=== PATIENT | female | born 1985 | race American Indian/Alaskan Native ===

== ENCOUNTER 2017-01-05 00:56 | Emergency (ER) | payer SELFPAY ==
[2017-01-05] MEDS ORDERED: PEPCID IV ONE (01:45)
--- NOTE | 2017-01-05 01:48 | Emergency Department Report ---
HPI - General Chief Complaint: Allergic Reaction Time Seen by Provider: 01/05/17 01:39 - HPI HPI: This is a 31-year-old Afro-[place] female presents to the emergency department by EMS with complaint of a possible allergic reaction. Patient says that she was eating some little [employer] pepperoni pizza and some [employer] lemonade, about 1 hour ago, when she all of a sudden started developing some hives and having some shortness of breath. EMS gave her Benadryl, Solu-Medrol, albuterol and outpatient says she feels like she is back at baseline. She does not have any known medication allergies. She does have an allergy to bananas answered types of nuts. She has a past medical history of asthma. She does not have a primary care doctor. She is a tobacco smoker. ED Past Medical Hx - Past Medical History Previous Medical History?: Yes Hx Hypertension: No Hx Diabetes: No Hx Deep Vein Thrombosis: No Hx Renal Disease: No Hx Sickle Cell Disease: No Hx Seizures: No Hx Asthma: Yes (last attack 3 years ago) Hx HIV: No - Surgical History Past Surgical History?: Yes Additional Surgical History: C SECTION X3 - Social History Smoking Status: Current Some Day Smoker Substance Use Type: None - Medications Home Medications: Home Medications Medication Instructions Recorded Confirmed Last Taken Type EPINEPHrine [Epipen 2-Arash] 0.3 mg IM ONCE PRN #0.6 ml 07/11/16 Unknown Rx Famotidine [Pepcid] 20 mg PO BID #6 tablet 07/11/16 Unknown Rx Prednisone [predniSONE 10 mg 10 mg PO .TAPER #1 tab.ds.pk 07/11/16 Unknown Rx (6-Day Pack, 21 Tabs)] diphenhydrAMINE [Benadryl CAP] 50 mg PO Q6H #12 capsule 07/11/16 Unknown Rx predniSONE [Deltasone] 20 mg PO QDAY #4 tab 01/05/17 Unknown Rx ED Review of Systems ROS: Stated complaint: NUPUR/ALLERGIC REACTION Other details as noted in HPI Comment: All other systems reviewed and negative Constitutional: denies: chills, fever Eyes: denies: eye pain, eye discharge, vision change ENT: denies: ear pain, throat pain Respiratory: shortness of breath. denies: cough, wheezing Cardiovascular: denies: chest pain, palpitations Gastrointestinal: denies: abdominal pain, nausea, diarrhea Genitourinary: denies: urgency, dysuria, discharge Musculoskeletal: denies: back pain, joint swelling, arthralgia Skin: rash (urticaria), pruritus Neurological: denies: headache, weakness, paresthesias Physical Exam - Physical Exam Vital Signs: Vital Signs 01/05/17 01:16 Temperature 98 F Pulse Rate 82 Respiratory 20 Rate Blood Pressure 129/69 O2 Sat by Pulse 96 Oximetry Physical Exam: GENERAL: The patient is well-developed well-nourished. HEENT: Normocephalic. Atraumatic. Extraocular motions are intact. Patient has moist mucous membranes. Pupils equal reactive to light bilaterally. NECK: Supple. Trachea is midline. CHEST/LUNGS: Clear to auscultation. There is no respiratory distress noted. HEART/CARDIOVASCULAR: Regular. There is no tachycardia. There is no gallop rub or murmur. ABDOMEN: Abdomen is soft, nontender. Patient has normal bowel sounds. There is no abdominal distention. SKIN: There is no rash. There is no edema. There is no diaphoresis. NEURO: The patient is awake, alert, and oriented. The patient is cooperative. The patient has no focal neurologic deficits. The patient has normal speech. MUSCULOSKELETAL: There is no tenderness or deformity. There is no limitation range of motion. There is no evidence of acute injury. ED Course Vital Signs 01/05/17 01:16 Temperature 98 F Pulse Rate 82 Respiratory 20 Rate Blood Pressure 129/69 O2 Sat by Pulse 96 Oximetry ED Medical Decision Making - Medical Decision Making 31-year-old female presents the emergency department after having what appears to be an allergic reaction to something she ate this evening. She had some urticaria and some shortness of breath but the symptoms appear to have resolved mostly after getting a breathing treatment, steroids and Benadryl in route by EMS. Patient has been monitored and reevaluated multiple times over the few hours she has been in the emergency department and she has remained stable and her symptoms have not returned. She will be placed on a few days of steroids and will use Benadryl as needed. She's been encouraged to follow up with a primary care doctor and may need an recreational assistant. She already has an EpiPen at home from previous allergic reactions. We discussed the fact that if she needs to use the EpiPen, that she needs to return to the emergency department immediately or call 911. Critical Care Time: No Critical care attestation.: If time is entered above; I have spent that time in minutes in the direct care of this critically ill patient, excluding procedure time. ED Disposition Clinical Impression: Urticaria Allergic reaction Qualifiers: Encounter type: initial encounter Qualified Code(s): T78.40XA - Allergy, unspecified, initial encounter Dyspnea Qualifiers: Dyspnea type: unspecified Qualified Code(s): R06.00 - Dyspnea, unspecified Disposition: DISCHARGED TO HOME OR SELFCARE Is pt being admited?: No Condition: Stable Instructions: Urticaria (ED), Dyspnea (ED) Additional Instructions: Please follow-up with a primary care doctor in the next few days. You also may need an recreational assistant in the near future to try and figure out what you are allergic to what is causing these symptoms. I placed you on a few days of steroids here and you can also take Benadryl as needed for itching, rash or allergic reaction. Return to the emergency department with any worsening of your symptoms or any acute distress. Prescriptions: predniSONE [Deltasone] 20 mg PO QDAY #4 tab Referrals: PRIMARY CAREMD [Primary Care Provider] - 3-5 Days KELSEY MOTT MD [Staff Physician] - 3-5 Days [facility] [Outside] - 3-5 Days Time of Disposition: 03:15
[2017-01-05 03:11] VITALS: BP 120/69
== END 2017-01-05 03:23 | disposition home or self-care (01) ==
LOC: ED 00:56
DX: T78.40XA Allergy, unspecified, initial encounter (principal); R06.00 Dyspnea, unspecified; F17.200 Nicotine dependence, unspecified, uncomplicated; J45.909 Unspecified asthma, uncomplicated; Z79.899 Other long term (current) drug therapy; Z91.018 Allergy to other foods; X58.XXXA Exposure to other specified factors, initial encounter; Y93.89 Activity, other specified; Y99.8 Other external cause status; Y92.89 Other specified places as the place of occurrence of the external cause
CPT/HCPCS: 96374